=== PATIENT | female | born 1930 ===

== ENCOUNTER 2017-01-14 02:57 | Emergency (ER) | payer MEDICARE ==
--- NOTE | 2017-01-14 03:09 | C.PDOC ---
History Of Present Illness Pt c/o nausea and anxiety today. Pt was found by grandson with a bottle of vodka and crushed Zanax. Pt denies drinking ETOH, vomiting, fever, or any other complaints. Pt has a history of alzheimers disease. Time Seen by Provider: 01/14/17 03:03 History Per: Patient History/Exam Limitations: no limitations Onset/Duration Of Symptoms: Hrs Current Symptoms Are (Timing): Still Present Severity: Mild Recent travel outside of the [place]: No Past Medical History Reviewed: Historical Data, Nursing Documentation, Vital Signs Vital Signs: Last Vital Signs Temp 97.6 F 01/14/17 03:11 Pulse 81 01/14/17 04:59 Resp 16 01/14/17 04:59 BP 160/93 H 01/14/17 03:11 Pulse Ox 100 01/14/17 05:33 - Medical History PMH: Alzheimer's Disease, Anxiety, Asthma, Dementia, Gastritis, HTN, Hypercholesterolemia, Hyperlipidemia Denies: Chronic Kidney Disease Family History: States: Unknown Family Hx - Social History Hx Tobacco Use: No Hx Alcohol Use: No Hx Substance Use: No - Immunization History Hx Tetanus Toxoid Vaccination: No Hx Influenza Vaccination: No Hx Pneumococcal Vaccination: No Review Of Systems Constitutional: Positive for: Weakness. Negative for: Fever, Other (Denies drinking alcohol) Gastrointestinal: Positive for: Nausea. Negative for: Vomiting Neurological: Positive for: Other (Anxiety) Physical Exam - Physical Exam Appears: Non-toxic Skin: Warm, Dry Oral Mucosa: Moist Cardiovascular: Rhythm Regular Respiratory: Normal Breath Sounds, No Rales, No Rhonchi, No Wheezing Gastrointestinal/Abdominal: Soft, No Tenderness, No Guarding, No Rebound ED Course And Treatment - Laboratory Results Result Diagrams: 01/14/17 03:29 01/14/17 03:29 ECG: Interpreted By Me, Viewed By Me ECG Rhythm: Sinus Rhythm (73), Nonspecific Changes O2 Sat by Pulse Oximetry: 100 Pulse Ox Interpretation: Normal - Radiology CXR: Interpreted by Me, Viewed By Me CXR Interpretation: Yes: Other (unchanged from 01/05/17). No: Infiltrates, Fracture, Pnemothorax Progress Note: blood work, ivf, monitor, alcohol and drug screen Reevaluation Time: 05:33 Reassessment Condition: Improved Disposition Counseled Patient/Family Regarding: Studies Performed, Diagnosis, Need For Followup - Disposition Referrals: Richardson Borden MD [Staff Provider] - Disposition: HOME/ ROUTINE Disposition Time: 03:08 Condition: FAIR Instructions: Anxiety (ED) - Clinical Impression Clinical Impression: Anxiety - Scribe Statement The provider has reviewed the documentation as recorded by the Scribe José Alston All medical record entries made by the Scribe were at my direction and personally dictated by me. I have reviewed the chart and agree that the record accurately reflects my personal performance of the history, physical exam, medical decision making, and the department course for this patient. I have also personally directed, reviewed, and agree with the discharge instructions and disposition.
[2017-01-14 03:15] VITALS: BMI 27.4
[2017-01-14 03:41] LABS: CHLORIDE 92 mmol/L (98-107); SODIUM 135 mmol/L (132-148)
[2017-01-14 03:42] LABS: POTASSIUM 2.9 mmol/L (3.6-5.2)
[2017-01-14 03:43] LABS: GFR AFRICAN-AMERICAN > 60
[2017-01-14 03:44] LABS: ALB/GLOB RATIO 1.2 (1.0-2.1); ALKALINE PHOSPHATASE 135 U/L (38-126); ALT/SGPT 20 U/L (9-52); AST/SGOT 26 U/L (14-36); BILIRUBIN,TOTAL 0.4 mg/dL (0.2-1.3); BLOOD UREA NITROGEN 21 mg/dL (7-17); CARBON DIOXIDE 26 mmol/L (22-30); GLUCOSE,RANDOM 156 mg/dL (65-105); TOTAL PROTEIN 7.7 g/dL (6.3-8.3)
[2017-01-14 03:45] LABS: ALCOHOL SERUM < 10 mg/dl (0-10)
[2017-01-14 04:23] LABS: RBC URINE 1 /hpf (0-3); URINE BILIRUBIN NEGATIVE (NEGATIVE); URINE BLOOD NEGATIVE (NEGATIVE); URINE COLOR Straw (YELLOW); URINE GLUCOSE (UA) NORMAL (Normal); URINE KETONE TRACE mg/dL (NEGATIVE); URINE LEUKOCYTE ESTERASE NEG Leu/uL (Negative); URINE PROTEIN NEGATIVE (NEGATIVE); URINE UROBILINOGEN NORMAL mg/dL (0.2-1.0); WBC URINE < 1 /hpf (0-5)
[2017-01-14] MEDS ORDERED: Potassium Chloride 10 mEq ER Tab PO STA (04:26)
[2017-01-14] MEDS ORDERED: Potassium Chloride 20 mEq/15 ml LIQ UD ONE (04:31)
[2017-01-14 04:36] LABS: BASO # 0.1 K/uL (0.0-0.2); BASO % 0.6 % (0.0-2.0); EOS # 1.5 K/uL (0.0-0.7); EOS % 12.7 % (0.0-4.0); HEMATOCRIT 36.6 % (34.0-47.0); LYMPH # 2.7 K/uL (1.0-4.3); LYMPH % 23.3 % (20.0-40.0); MEAN CORPUSCULAR HEMOGLOBIN 30.4 pg (27.0-31.0); MEAN CORPUSCULAR HGB CONC 33.8 g/dL (33.0-37.0); MONO # 0.9 K/uL (0.0-0.8); MONO % 7.9 % (0.0-10.0); RED CELL DISTRIBUTION WIDTH 13.1 % (11.5-14.5); WHITE BLOOD COUNT 11.7 K/uL (4.8-10.8)
[2017-01-14] MEDS ORDERED: Potassium Chloride 20 mEq/15 ml LIQ UD PO STA (10:21)
[2017-01-14] MEDS ORDERED: Potassium Chloride 20 mEq ER Tab PO ONE (10:27)
--- NOTE | 2017-01-14 11:46 | RAD ---
PROCEDURE: CHEST RADIOGRAPH, 1 VIEW HISTORY: Detox/Psy COMPARISON: 12/29/2016. FINDINGS: LUNGS: Reticular opacity in the lung apices likely from emphysematous changes, bronchiectasis and/or scarring. PLEURA: No pneumothorax or pleural fluid seen.Biapical pleural parenchymal thickening noted. CARDIOVASCULAR: Stable cardiomediastinal silhouette. OSSEOUS STRUCTURES: The osseous structures demonstrate degenerative changes. VISUALIZED UPPER ABDOMEN: Upper abdomen is suboptimally evaluated. OTHER FINDINGS: Postsurgical changes of the 1st and 5th ribs on the right. IMPRESSION: Interstitial changes in the lung apices.No significant interval change.
[2017-01-14 17:16] VITALS: BP 148/84; PULSE 99; RESP 16; TEMP 98.1; O2SAT 97
--- NOTE | 2017-01-16 23:54 | CARD ---
APPROVED REPORT EKG Measurement Heart [id number] <Conclusion> Normal sinus rhythm Normal ECG
== END 2017-01-14 19:04 | disposition home or self-care (01) ==
LOC: C.ER 02:57 → UNDOADMOB 10:20 → C.9E 10:20 → C.ER 19:04
DX: F41.9 Anxiety disorder, unspecified (principal)
CPT/HCPCS: 71010; 80053; 81001; 82948; 83690; 85025; 93005; 99285; G0480

== ENCOUNTER 2017-02-12 15:38 | Emergency (ER) | payer MEDICARE ==
[2017-02-12 15:39] VITALS: BMI 27.4
[2017-02-12 16:01] VITALS: BP 126/80; PULSE 99; RESP 18; TEMP 98; O2SAT 98
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
[2017-02-12 16:47] LABS: BASO # 0.1 K/uL (0.0-0.2); EOS # 0.4 K/uL (0.0-0.7); EOS % 5.5 % (0.0-4.0); HEMATOCRIT 38.1 % (34.0-47.0); LYMPH # 1.4 K/uL (1.0-4.3); MEAN CELL VOLUME 91.9 fL (81.0-99.0); MEAN CORPUSCULAR HEMOGLOBIN 30.5 pg (27.0-31.0); MEAN CORPUSCULAR HGB CONC 33.2 g/dL (33.0-37.0); MEAN PLATELET VOLUME 7.9 fL (7.2-11.7); MONO # 0.5 K/uL (0.0-0.8); MONO % 6.9 % (0.0-10.0); RED CELL DISTRIBUTION WIDTH 13.6 % (11.5-14.5); WHITE BLOOD COUNT 6.5 K/uL (4.8-10.8)
[2017-02-12 16:59] LABS: CHLORIDE 99 mmol/L (98-107)
[2017-02-12 17:00] LABS: POTASSIUM 4.5 mmol/L (3.6-5.2); SODIUM 140 mmol/L (132-148)
[2017-02-12 17:02] LABS: ALB/GLOB RATIO 1.3 (1.0-2.1); ALKALINE PHOSPHATASE 85 U/L (38-126); ALT/SGPT 23 U/L (9-52); AST/SGOT 27 U/L (14-36); BILIRUBIN,TOTAL 0.4 mg/dL (0.2-1.3); BLOOD UREA NITROGEN 18 mg/dL (7-17); CARBON DIOXIDE 28 mmol/L (22-30); GFR AFRICAN-AMERICAN > 60; GLUCOSE,RANDOM 119 mg/dL (65-105); TOTAL PROTEIN 7.5 g/dL (6.3-8.3)
[2017-02-12 17:03] LABS: ALCOHOL SERUM < 10 mg/dl (0-10); CALCIUM 9.4 mg/dl (8.6-10.4)
[2017-02-12 17:28] LABS: RBC URINE 1 /hpf (0-3); URINE BILIRUBIN NEGATIVE (NEGATIVE); URINE BLOOD NEGATIVE (NEGATIVE); URINE COLOR Yellow (YELLOW); URINE GLUCOSE (UA) NORMAL (Normal); URINE KETONE NEGATIVE (NEGATIVE); URINE LEUKOCYTE ESTERASE NEG Leu/uL (Negative); URINE PROTEIN NEGATIVE (NEGATIVE); URINE UROBILINOGEN NORMAL mg/dL (0.2-1.0); WBC URINE 1 /hpf (0-5)
--- NOTE | 2017-02-14 12:45 | CARD ---
APPROVED REPORT EKG Measurement Heart [id number] <Conclusion> Normal sinus rhythm Left axis deviation Abnormal ECG
== END 2017-02-12 19:45 | disposition left against medical advice (07) ==
LOC: C.ER 15:38
DX: Z63.9 Problem related to primary support group, unspecified (principal)
CPT/HCPCS: 80053; 81001; 85025; 93005; 99283; G0480

== ENCOUNTER 2017-02-13 12:01 | Emergency (ER) | payer MEDICARE ==
[2017-02-13 12:01] VITALS: BMI 27.4
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
[2017-02-13 16:14] VITALS: BP 130/74; PULSE 100; RESP 18; TEMP 98; O2SAT 96
== END 2017-02-13 16:18 | disposition home or self-care (01) ==
LOC: C.ER 12:01
DX: R45.1 Restlessness and agitation (principal); Z63.9 Problem related to primary support group, unspecified

== ENCOUNTER 2017-02-14 11:29 | Observation (INO) | payer MEDICARE ==
[2017-02-14 11:30] VITALS: BMI 27.4
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
[2017-02-14 14:10] LABS: BASO % 0.6 % (0.0-2.0); EOS # 0.3 K/uL (0.0-0.7); EOS % 4.3 % (0.0-4.0); HEMATOCRIT 38.3 % (34.0-47.0); LYMPH # 1.6 K/uL (1.0-4.3); LYMPH % 20.7 % (20.0-40.0); MEAN CELL VOLUME 91.7 fL (81.0-99.0); MEAN CORPUSCULAR HEMOGLOBIN 30.5 pg (27.0-31.0); MEAN CORPUSCULAR HGB CONC 33.3 g/dL (33.0-37.0); MEAN PLATELET VOLUME 7.8 fL (7.2-11.7); MONO # 0.4 K/uL (0.0-0.8); MONO % 5.4 % (0.0-10.0); RED CELL DISTRIBUTION WIDTH 13.9 % (11.5-14.5); WHITE BLOOD COUNT 7.9 K/uL (4.8-10.8)
[2017-02-14 14:20] LABS: CHLORIDE 99 mmol/L (98-107)
[2017-02-14 14:21] LABS: SODIUM 137 mmol/L (132-148)
[2017-02-14 14:23] LABS: ALB/GLOB RATIO 1.3 (1.0-2.1); ALKALINE PHOSPHATASE 80 U/L (38-126); AST/SGOT 29 U/L (14-36); BILIRUBIN,TOTAL 0.5 mg/dL (0.2-1.3); CARBON DIOXIDE 24 mmol/L (22-30); GFR AFRICAN-AMERICAN > 60; TOTAL PROTEIN 7.2 g/dL (6.3-8.3)
[2017-02-14 14:24] LABS: ALCOHOL SERUM < 10 mg/dl (0-10); ALT/SGPT 25 U/L (9-52); BLOOD UREA NITROGEN 16 mg/dL (7-17); GLUCOSE,RANDOM 138 mg/dL (65-105)
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
--- NOTE | 2017-02-14 15:32 | RAD ---
PROCEDURE: CHEST RADIOGRAPH, 1 VIEW HISTORY: Detox/Psy COMPARISON: 01/14/2017 FINDINGS: LUNGS: Dense biapical pleural thickening ; right greater left with prominent consolidative changes at the right lung. Persistent prominent nodular density projecting over the left upper lung zone. Hyperinflation suggestive for COPD and or emphysematous changes. Scattered nodularity at the lung bases. Blunted right costophrenic angle with patchy increased markings at the right lung base. Right hilar prominence. PLEURA: As above. CARDIOVASCULAR: Normal. OSSEOUS STRUCTURES: No significant abnormalities. VISUALIZED UPPER ABDOMEN: Normal. OTHER FINDINGS: None. IMPRESSION: Dense biapical pleural thickening ; right greater left with prominent consolidative changes at the right lung. Persistent prominent nodular density projecting over the left upper lung zone. Hyperinflation suggestive for COPD and or emphysematous changes. Scattered nodularity at the lung bases. Blunted right costophrenic angle with patchy increased markings at the right lung base. Right hilar prominence.
[2017-02-14 16:17] LABS: RBC URINE 1 /hpf (0-3); URINE BACTERIA RARE (<OCC); URINE BILIRUBIN NEGATIVE (NEGATIVE); URINE BLOOD NEGATIVE (NEGATIVE); URINE COLOR Yellow (YELLOW); URINE GLUCOSE (UA) NORMAL (Normal); URINE KETONE NEGATIVE (NEGATIVE); URINE LEUKOCYTE ESTERASE NEG Leu/uL (Negative); URINE PROTEIN NEGATIVE (NEGATIVE); URINE UROBILINOGEN NORMAL mg/dL (0.2-1.0); WBC URINE 1 /hpf (0-5)
[2017-02-15 11:03] VITALS: BP 118/73; PULSE 97; RESP 17; TEMP 97.9; O2SAT 99
--- NOTE | 2017-02-15 11:30 | PCM.PYCHPN ---
Psychiatric Progress Note - Psychiatric Progress Note Patient seen today, length of contact: 15 min Patient Chief Complaint: I want to go home Problems Identified/Issues Discussed: Patient seen and evaluated, chart reviewed and discussed with the nurse. Today patient appeared more organized. As per staff she no longer remained irritable and agitated, she became calm and cooperative. she denied any auditory or visual hallucinations she denies any intent to harm her grandson or any family member. She denied any suicidal ideation or suicidal ideation. [facility] screeners were called but he refused to commit the patient voluntarily. Supportive therapy and psychoeducation were given. Medication Change: Yes Medical Record Reviewed: Yes Mental Status Examination - Cognitive Function Orientation: Person, Place, Situation, Time Memory: Intact Attention: WNL Concentration: WNL Association: WNL Fund of Knowledge: Poor - Mood Mood: Anxious - Affect Affect: Constricted - Formal Thought Process Formal Thought Process: Delusions - Suicidal Ideation Suicidal Ideation: No - Homicidal Ideation Homicidal Ideation: No Goal/Treatment Plan - Goal/Treatment Plan Need for Continued Stay: Discharge may exacerbated symptoms, Severe functional impairment Progress Toward Problem(s) and Goals/Treatment Plan: Delirium Rule out altered mental status due to medical conditions CBT Psychoeducation Haldol 5 mg by mouth twice a day Cogentin 1 mg by mouth twice a day patient psychiatrically stable to be discharge with a plan to follow-up with outpatient clinic - Smoking Cessation Smoking Cessation Initiated: No
--- NOTE | 2017-02-17 08:29 | CARD ---
APPROVED REPORT EKG Measurement Heart [id number] [place] [id number] <Conclusion> Normal sinus rhythm Left axis deviation Abnormal ECG
== END 2017-02-15 10:48 | disposition home or self-care (01) ==
LOC: C.ER 11:29 → C.9OBSV 12:30
PROVIDERS: ADMIT Emergency Medicine; ATTEND Emergency Medicine
DX: G30.9 Alzheimer's disease, unspecified (principal); F02.80 Dementia in other diseases classified elsewhere, unspecified severity, without behavioral disturbance, psychotic disturbance, mood disturbance, and anxiety; I10 Essential (primary) hypertension; J45.909 Unspecified asthma, uncomplicated; E78.5 Hyperlipidemia, unspecified; F05 Delirium due to known physiological condition; Z68.1 Body mass index [BMI] 19.9 or less, adult
CPT/HCPCS: 36415; 71010; 80053; 81001; 85025; G0378; G0480